=== PATIENT | male | born 1980 | race Caucasian/White ===

== ENCOUNTER 2018-08-22 08:47 | Emergency (ER) | payer SELFPAY ==
--- NOTE | 2018-08-22 09:21 | ER Document Report ---
HPI - HPI Time Seen by Provider: 08/22/18 09:06 Pain Level: 3 Notes: Patient is an otherwise healthy 37-year-old male who presents the emergency department with chief complaint of swelling to the right side of his neck. Patient reports he did have an upper respiratory infection about 10 days ago but that has been completely resolved. Over the last few days he has had no illness, no fever or sore throat. He states this morning he woke up with a significantly swollen knot on the right side of his neck. He reports pain with swallowing but he is able to swallow. - CONSTITUTIONAL Constitutional: DENIES: Fever, Chills Past Medical History - General Information source: Patient - Social History Smoking Status: Never Smoker Frequency of alcohol use: None Drug Abuse: None Family History: Reviewed & Not Pertinent Patient has suicidal ideation: No Patient has homicidal ideation: No - Medical History Medical History: Negative Renal/ Medical History: Denies: Hx Peritoneal Dialysis Surgical Hx: Negative - Immunizations Immunizations up to date: Yes Vertical Provider Document - CONSTITUTIONAL Notes: PHYSICAL EXAMINATION: GENERAL: Well-appearing, well-nourished and in no acute distress. HEAD: Atraumatic, normocephalic. EYES: Pupils equal round extraocular movements intact, conjunctiva are normal. ENT: Nares patent, palpable, tender, firm mass to right side of neck. NECK: Normal range of motion LUNGS: No respiratory distress Musculoskeletal: Normal range of motion NEUROLOGICAL: Normal speech, normal gait. PSYCH: Normal mood, normal affect. SKIN: Warm, Dry, normal turgor, no rashes or lesions noted. - INFECTION CONTROL TRAVEL OUTSIDE OF THE [place] IN LAST 30 DAYS: No Course - Re-evaluation Re-evalutation: 08/22/18 09:20 Spoke with attending physician regarding imaging for this patient. Will order CT of the soft tissues of the neck with IV contrast. CAT scan reveals what appears to be an enlarged lymph node. No evidence of abscess. Patient discharged home in stable condition. Patient given strict ED return precautions - Vital Signs Vital signs: Temp Pulse Resp BP Pulse Ox 97.4 F 91 16 164/112 H 97 08/22/18 08:53 08/22/18 08:53 08/22/18 08:53 08/22/18 08:53 08/22/18 08:53 Discharge - Discharge Clinical Impression: Enlarged lymph node in neck Condition: Stable Disposition: HOME, SELF-CARE Additional Instructions: Lymphadenopathy You have enlargement of lymph glands, called lymphadenopathy. Lymph glands filter tissue fluids. They help to fight infection. Most of the time, enlarged lymph glands are not serious. Lymph glands may react to a viral or bacterial infection by becoming swollen and painful. When the infection goes away, the glands shrink. Sometimes a lymph gland will remain enlarged for a long time after an infection. Occasionally, a lymph gland may be overwhelmed by infection and form an abscess. If an enlarged lymph gland has signs that are suspicious for tumor, the doctor will recommend a biopsy. A suspicious gland usually is NOT painful, grows very slowly, and is rock-hard to touch. See the doctor or return if there is increasing swelling and redness, high fever, difficulty breathing, or any other change for the worse. Your given a dose of Decadron here in the emergency department which is a steroid. This should help reduce the size of the lymph node as it helps reduce inflammation. The lymph node will most likely decrease in size over the next several days to weeks. There does not appear to be an abscess in the lymph node. As long as the lymph node does not increase in size, you do not develop a fever or difficulty swallowing or breathing you can follow-up with your primary if any of the symptoms do occur please return to the emergency department immediately.
--- NOTE | 2018-08-22 10:37 | RADIOLOGY REPORT (SQ) ---
EXAM DESCRIPTION: CT SOFT TISSUE NECK WITH COMPLETED DATE/TIME: 08/22/2018 10:00 am REASON FOR STUDY: swelling right side of neck COMPARISON: None. TECHNIQUE: Post IV contrasted scanning from skull base through lung apices with review of bone, soft tissue and lung windows. Reconstructed coronal and sagittal MPR images reviewed. All images stored on PACS. All CT scanners at this facility use dose modulation, iterative reconstruction, and/or weight based d osing when appropriate to reduce radiation dose to as low as reasonably achievable (ALARA). [facility]: Dose Right [facility]: CareDose [facility]: Dose Right [facility]: Teradose 4D [facility]: BlueTalon CONTRAST TYPE AND DOSE: contrast/concentration: Isovue 350.00 mg/ml; Total Contrast Delivered: 75.0 ml; Total Saline Delivered: 50.0 ml RENAL FUNCTION: None required. The patient is less than 50 years old. RADIATION DOSE: CT Rad equipment meets quality standard of care and radiation dose reduction techniq ues were employed. CTDIvol: 18.7 mGy. DLP: 612 mGy-cm. . LIMITATIONS: None. FINDINGS: SKULL BASE: Intact. MAJOR SALIVARY GLANDS: A marker was placed over the right submandibular gland(the area of clinical c oncern). The right submandibular gland is enlarged when compared to the left. Slight haziness to th e fat surrounding the right submandibular gland.. Borderline right submandibular gland lymph nodes a re noted, maybe on a reactive basis The overlying skin and, subcutaneous tissue are unremarkable in a ppearance. No evidence of calcification on this post contrast study. Considerations for these findi ngs include inflammatory/infectious etiologies. LYMPHADENOPATHY: No adenopathy. MUCOSAL MASSES OR ASYMMETRY: No mucosal masses or asymmetry. LARYNX/CORDS: No abnormal findings. VASCULAR STRUCTURES: The major vessels are patent. LUNG APICES: Clear. BONES: Intact. THYROID: Normal size. No masses. PARANASAL SINUSES: Minimal to very slight mucoperiosteal thickening bilateral maxillary sinuses. OTHER: Small calcifications in the area tonsillar soft tissues bilaterally may be related to prior i nflammatory changes. IMPRESSION: 1. The right submandibular gland is mildly prominent in size when compared to the left. The surrounding fat is slightly hazy in appearance. Borderline right submandibular lymph nodes are noted, maybe on a reactive basis. Considerations for these findings include inflammatory/ infectiou s changes. Correlation suggested. TECHNICAL DOCUMENTATION: JOB ID: [id number] Quality ID # [id number]: Final reports with documentation of one or more dose reduction techniques (e.g., Au tomated exposure control, adjustment of the mA and/or kV according to patient size, use of iterative reconstruction technique) 2010 [employer]- All Rights Reserved Reading location - IP/workstation name: [email or web address]
[2018-08-22] MEDS ORDERED: DEXAMETHASONE SOD PHOS INJ 10 MG/1 ML VIAL IM ONE (10:43)
[2018-08-22 10:55] VITALS: BP 144/95
== END 2018-08-22 11:08 | disposition home or self-care (01) ==
LOC: ER 08:47
DX: R59.9 Enlarged lymph nodes, unspecified (principal); R13.10 Dysphagia, unspecified
CPT/HCPCS: 99283; 96372; 70491; J1100